=== PATIENT | female | born 1965 | race Caucasian/White ===

== ENCOUNTER → 2016-07-03 | Outpatient (CLI) | payer BC ==
[~2016-07-03] MED LIST: ATORVASTATIN CA20 MG PO; CLONIDINE HCL0.1 MG PO; FENOFIBRATE160 M1 PO; GLIMEPIRIDE1 MG PO; JARDIANCE10 MG PO; LEVAQUIN750 MG PO; MELATONIN5 M1 PO; METFORMIN HCL500 MG PO; MULTIVITAMIN1 EAC2 PO; NYSTATIN-TRIAMC15 GM TP; OMEGA-3 KRILL1 EACH PO; PROZAC40 MG PO; SAPHRIS10 MG PO; TESSALON PERLE100 MG PO; VITAMIN D35000 UNIT PO
== END | disposition home or self-care (01) ==
LOC: RES 09:32
DX: J44.9 Chronic obstructive pulmonary disease, unspecified (principal)
CPT/HCPCS: 94060; 94726; 94729

== ENCOUNTER → 2016-11-02 | Outpatient (CLI) | payer BC, OTHER ==
[~2016-11-02] MED LIST changes: +FENOFIBRATE200 M1 PO; +HUMULIN 70100 UNIT/2 SC; +NOVOLIN,HU100 UNITS1 SC; +WELLBUTRIN75 MG PO
[2016-11-02 08:58] LABS: POINT-OF-CARE METER ID UU14107333
== END | disposition home or self-care (01) ==
LOC: AMB 08:00
PROVIDERS: Internal Medicine
DX: R19.7 Diarrhea, unspecified (principal); K63.5 Polyp of colon; K22.70 Barrett's esophagus without dysplasia; K29.60 Other gastritis without bleeding; E11.65 Type 2 diabetes mellitus with hyperglycemia; J44.9 Chronic obstructive pulmonary disease, unspecified; E78.00 Pure hypercholesterolemia, unspecified; E78.1 Pure hyperglyceridemia; Z79.4 Long term (current) use of insulin; G47.33 Obstructive sleep apnea (adult) (pediatric); K76.0 Fatty (change of) liver, not elsewhere classified; E55.9 Vitamin D deficiency, unspecified; E66.9 Obesity, unspecified; F31.9 Bipolar disorder, unspecified
CPT/HCPCS: 82948; 88305; 88342 TC; J2250; J3010